=== PATIENT | female | born 1975 | race Caucasian/White ===

== ENCOUNTER 2017-08-22 11:03 | Emergency (ER) | payer OTHER ==
--- NOTE | 2017-08-22 12:20 | RAD ---
LEFT FOREARM THREE VIEWS: INDICATIONS: Soft tissue injury. Pain. Reduced motion of the left upper extremity. FINDINGS: The left forearm series reveals intact osseous structures without acute osseous pathology evident. N o radiopaque foreign body is seen. IMPRESSION: 1. No acute osseous abnormality of the left forearm. 2. No radiopaque foreign body. POS: [facility]
[2017-08-22] MEDS ORDERED: Ketorolac Tromethamine 30 MG/ML VIAL ONE (12:50)
[2017-08-22] MEDS ORDERED: Bacitracin Zinc 1 Packet ONE (12:51)
== END 2017-08-22 13:15 | disposition home or self-care (01) ==
LOC: ERS 11:03
DX: S51.852A Open bite of left forearm, initial encounter (principal); F17.210 Nicotine dependence, cigarettes, uncomplicated; W54.0XXA Bitten by dog, initial encounter
CPT/HCPCS: 96372; J1885